=== PATIENT | female | born 1980 | race Caucasian/White ===

== ENCOUNTER 2022-03-01 12:11 | Emergency (ER) | payer MEDICAID ==
[~2022-03-01] VITALS: Ht 320 cm; Wt 77.1 kg
[2022-03-01] MEDS ORDERED: predniSONE 10 MG TABLET PO ONE (13:15)
[2022-03-01] MEDS ORDERED: ALBUTEROL SULFATE 2.5 MG/3 ML NEBU NEB ONE (13:15)
[2022-03-01] MEDS ORDERED: ALBUTEROL SULFATE 2.5 MG/3 ML NEBU ONE (13:28)
[2022-03-01] MEDS ORDERED: predniSONE 20 MG TABLET ONE (13:31)
[2022-03-01 13:33] LABS: HEMATOCRIT 32.9 % (31.2-41.9); MEAN CORPUSCULAR HEMOGLOBIN 21.8 uug (24.7-32.8); MEAN CORPUSCULAR VOLUME 68.4 fL (75.5-95.3); PLATELET COUNT (AUTO) 347 K/uL (179-408)
[2022-03-01 13:45] LABS: CARBON DIOXIDE 25 mmol/L (21-32); CHLORIDE 106 mmol/L (98-107); CREATININE 0.4 mg/dL (0.6-1.3); GLUCOSE 106 mg/dL (74-106); UREA NITROGEN, BLOOD 10 mg/dL (7-18)
[2022-03-01 13:59] LABS: ALANINE AMINOTRANSFERASE 83 U/L (14-59); ALKALINE PHOSPHATASE 103 U/L (50-136); ASPARTATE AMINOTRANSFERASE 51 U/L (15-37); BILIRUBIN,DIRECT 0.1 mg/dL (0.0-0.2); BILIRUBIN,TOTAL 0.2 mg/dL (0.2-1.0); TOTAL PROTEIN, SERUM 6.9 g/dL (6.4-8.2)
[2022-03-01] MEDS ORDERED: ALBU8.5H8 INH (14:05)
[2022-03-01] MEDS ORDERED: PRED50TA PO (14:05)
[2022-03-01] MEDS ORDERED: LORA0.5T48 PO (14:05)
--- NOTE | 2022-03-01 14:30 | NUR ---
Gave pt RX and d/c instructions, pt verbalized understanding.
== END 2022-03-01 14:36 | disposition home or self-care (01) ==
LOC: ER 12:14
DX: J45.901 Unspecified asthma with (acute) exacerbation (principal); F41.9 Anxiety disorder, unspecified; D18.09 Hemangioma of other sites; Z88.0 Allergy status to penicillin
CPT/HCPCS: 36415; 71045; 80048; 80076; 83880; 84484; 84702; 85025; 85379; 93005; 94640; 99285; J7512; A4663